=== PATIENT | female | born 1940 | race Caucasian/White ===

== ENCOUNTER 2017-06-12 00:27 | Inpatient (IN) | payer OTHER ==
[~2017-06-12] VITALS: Ht 160 cm; Wt 65.9 kg
[2017-06-12] MEDS ORDERED: MORPHINE SULFATE 2 MG/1 ML DISP.SYRIN IV ONE (00:45)
[2017-06-12] MEDS ORDERED: ONDANSETRON IV *ER 4 MG/2 ML VIAL IV ONE (00:45)
[2017-06-12] MEDS ORDERED: IV NORMAL SALINE 500 ML IV ONE (00:45)
[2017-06-12 01:06] LABS: BASOPHILS % (AUTO) 0.7 % (0.0-2.0); EOSINOPHILS # (AUTO) 0.1 K/uL (0.0-0.7); EOSINOPHILS % (AUTO) 1.6 % (0.0-7.0); HEMATOCRIT 33.6 % (31.2-41.9); HEMOGLOBIN 11.3 g/dL (10.9-14.3); LYMPHOCYTES # (AUTO) 2.5 K/uL (20.0-40.0); MEAN CORPUSCULAR HEMOGLOBIN 29.8 uug (24.7-32.8); MEAN CORPUSCULAR HGB CONC 34 g/dL (32.3-35.6); MEAN CORPUSCULAR VOLUME 88.5 fL (75.5-95.3); MONOCYTES # (AUTO) 0.5 K/uL (2.0-10.0); MONOCYTES % (AUTO) 9.8 % (0.0-11.0); NEUTROPHILS # (AUTO) 2.3 K/uL (1.8-8.9); NEUTROPHILS % (AUTO) 41.9 % (38.5-71.5); PLATELET COUNT (AUTO) 234 K/uL (179-408); WHITE BLOOD COUNT (AUTO) 5.5 K/uL (3.8-11.8)
[2017-06-12] MEDS ORDERED: MORPHINE SULFATE 4 MG/1 ML DISP.SYRIN ONE (01:10)
[2017-06-12] MEDS ORDERED: ONDANSETRON 4 MG/2 ML VIAL ONE (01:11)
[2017-06-12] MEDS ORDERED: FLUO-120 PO (01:21)
[2017-06-12] MEDS ORDERED: CLON1TAB4 PO (01:21)
--- NOTE | 2017-06-12 01:26 | NUR ---
PT BIBA S/P FALL INVOLVING LEFT HIP. PT IN BED RESTING QUIETLY WITH EYES CLOSED. PT'S DAUGHTER AT BEDSIDE. XRAY AT BEDSIDE.
[2017-06-12 01:27] LABS: CARBON DIOXIDE 25 mmol/L (21-32); CHLORIDE 106 mmol/L (98-107); CREATININE 1.1 mg/dL (0.6-1.3); GLUCOSE 93 mg/dL (74-106); POTASSIUM 3.6 mmol/L (3.5-5.1); UREA NITROGEN, BLOOD 15 mg/dL (7-18)
[2017-06-12 01:32] LABS: ALANINE AMINOTRANSFERASE 12 U/L (14-59); ALKALINE PHOSPHATASE 90 U/L (50-136); ASPARTATE AMINOTRANSFERASE 11 U/L (15-37); BILIRUBIN,TOTAL 0.3 mg/dL (0.2-1.0); TOTAL PROTEIN, SERUM 6.6 g/dL (6.4-8.2)
[2017-06-12 01:58] LABS: CREATINE KINASE, TOTAL 61 U/L (26-192)
--- NOTE | 2017-06-12 02:05 | NUR ---
PT REPORTED REDUCED HIP PAIN
--- NOTE | 2017-06-12 03:30 | NUR ---
PT IN BED RESTING QUIETLY WITH EYES CLOSED. PT'S DAUGHTER AT BEDSIDE. NO SIGNS OF DISTRESS WITNESSED AT THIS TIME.
[2017-06-12] MEDS ORDERED: HYDROCODONE/APAP 5-325MG TABLET PO PRN (03:45)
[2017-06-12] MEDS ORDERED: ONDANSETRON 4 MG/2 ML VIAL IV PRN (03:45)
[2017-06-12] MEDS ORDERED: Z GUARD REMEDY PASTE 57 GM TUBE TOP PRN (03:45)
--- NOTE | 2017-06-12 03:55 | NUR ---
REPORT GIVEN TO 2ND FLOOR TELE NURSE
--- NOTE | 2017-06-12 04:15 | NUR ---
Pt. admitted to TELEMETRY, under care of Dr. PHAM. Belongs List completed
--- NOTE | 2017-06-12 04:45 | NUR ---
Admitted a 77 y.o female patient from ER via [facility] with DX: L hip pain S/P fall. Patient AAO, speaks and understands Farsi only. Daughter at bedside to interpret. Moans and guarding L leg when turned. Wants to urinate; unable to use bedpan due to pain. Ingram catheter F#18 inserted aseptically; with clear yellow urine. Assessment completed. RHD IV site tender and with pain as per patient. Dc'd. New IV started to LFA with angio#20. Patient cooperative. Kept NPO as per MD's order. Patient and daughter made aware.
--- NOTE | 2017-06-12 05:00 | NUR ---
With large orange cold pack immobilizer to L leg. Patient able to wiggle toes of L leg; pedal pulses palpable.
[2017-06-12 05:13] VITALS: BP 106/44
--- NOTE | 2017-06-12 06:20 | NUR ---
Nursing admission data completed; information given by patient's daughter Dennys.
--- NOTE | 2017-06-12 07:30 | NUR ---
RECIEVED PT LYING IN BED, SOUND ASLEEP BUT EASILY AROUSABLE. S/P FALL, LIMITED MOVEMENT ON HER LEFT HIP AND LEG DUE TO PAIN. ABLE TO WIGGLE HER TOES. ORIENTED AND FOLLOW COMMANDS. SLEEPING ON AND OFF.
--- NOTE | 2017-06-12 09:00 | NUR ---
SEEN AND EXAMINED BY DR HERRERA WITH NER ORDERS MADE.
--- NOTE | 2017-06-12 10:00 | NUR ---
STARTED IVF D51/2 NS AT 80ML/HR VIA LEFT FA ORDERED BY DR HERRERA. PT NPO.
[2017-06-12] MEDS: IV D5 1/2 NS 1000 ML 1,000 ML IV PRN ×2 (10:11→23:28)
--- NOTE | 2017-06-12 10:30 | NUR ---
SEEN AND EXAMINED BY DR THAO ORTHOPEDIC SURGEON AND SPOKEN WITH DAUGHTER ON THE PHONE AND DISCUSSED OF THE COMING SURGERY ON WEDNESDAY.
[2017-06-12 11:36] VITALS: BP 112/56
--- NOTE | 2017-06-12 12:00 | NUR ---
PT NOT HAVING SURGERY UNTIL WEDNESDAY. MAY HAVE REGULAR DIET ORDERED. PT ATE VERY LITTLE. NEEDS MAX ASSISTANCE IN TURNING ONLY TO HER RIGHT SIDE.
[2017-06-12] MEDS: FLUOXETINE HCL 20 MG CAPSULE PO SCH (15:12)
[2017-06-12] MEDS: MORPHINE SULFATE 4 MG/1 ML DISP.SYRIN IV PRN (15:13)
--- NOTE | 2017-06-12 15:15 | NUR ---
MEDICATED WITH MORPHINE SULFATE 2MG SLOW IVP ORDERED FOR C/O SEVERE PAIN ESPECIALLY WITH TURNING.
[2017-06-12 16:09] VITALS: BP 110/56
[2017-06-12 20:00] VITALS: BP 116/46
--- NOTE | 2017-06-12 20:00 | NUR ---
RECEIVED PT. AWAKE, SPEAK & UNDERSTAND FARSI ONLY. ON O2 @ 2LNC W/ O2 SAT OF 95%.IVF D51/2NS @ 80CC/HR ON LFA, NO SIGNS OF INFILTRATION. LEFT LEG IMMOBILIZER INTACT. TURNED PT ON HER R SIDE W/ HOB ELEVATED. NOT IN ANY DISTRESS.
--- NOTE | 2017-06-12 23:27 | NUR ---
MEDICATED W/ NORCO 5/325 1 TAB FOR PAIN, THEN TURNED PT AFTER 30 MINS.
[2017-06-13] VITALS: BP 114/42
[2017-06-13 04:00] VITALS: BP 113/58
[2017-06-13 05:51] LABS: BASOPHILS % (AUTO) 0.5 % (0.0-2.0); EOSINOPHILS % (AUTO) 0.8 % (0.0-7.0); LYMPHOCYTES # (AUTO) 1.5 K/uL (20.0-40.0); MONOCYTES # (AUTO) 0.6 K/uL (2.0-10.0)
--- NOTE | 2017-06-13 06:00 | NUR ---
RESTING QUITELY. IVF INFUSING WELL.
[2017-06-13 06:16] LABS: CARBON DIOXIDE 28 mmol/L (21-32); CHLORIDE 104 mmol/L (98-107); CHOLESTEROL 244 mg/dL (<200); GLUCOSE 103 mg/dL (74-106); HDL CHOLESTEROL 47 mg/dL (40-60); MAGNESIUM 1.5 mg/dL (1.8-2.4); PHOSPHOROUS 3.7 mg/dL (2.5-4.9); TRIGLYCERIDES 129 MG/DL (30-150); UREA NITROGEN, BLOOD 12 mg/dL (7-18)
[2017-06-13 06:33] LABS: THYROID STIMULATING HORMONE 1.363 mIU/mL (0.358-3.740)
[2017-06-13 06:40] LABS: LYMPHOCYTES % (AUTO) 24.7 % (20.5-51.5); MEAN CORPUSCULAR HEMOGLOBIN 29.8 uug (24.7-32.8); MEAN CORPUSCULAR HGB CONC 34 g/dL (32.3-35.6); MEAN CORPUSCULAR VOLUME 87.6 fL (75.5-95.3); MONOCYTES % (AUTO) 9.8 % (0.0-11.0); NEUTROPHILS % (AUTO) 64.2 % (38.5-71.5); PLATELET COUNT (AUTO) 185 K/uL (179-408); RED BLOOD CELL COUNT(AUTO) 3.34 MIL/uL (3.63-4.92); WHITE BLOOD COUNT (AUTO) 6.2 K/uL (3.8-11.8)
[2017-06-13 06:41] LABS: HEMATOCRIT 29.3 % (31.2-41.9)
--- NOTE | 2017-06-13 07:30 | NUR ---
RECIEVED PT LYING IN BED, AWAKE, SPEAKS ONLY FARSI. VERY FRAGILE TO PAIN RIGHT NOW SECONDARY TO HER HIP FRACTURE. APPLIED ICEBAG ON THE LEFT HIP. HR-SR NO ECTOPY. REPOSITION TO HER RIGHT SIDE.
--- NOTE | 2017-06-13 08:30 | NUR ---
ATE VERY LITTLE BREAKFAST ABOUT 5%. MAIN IVF IS D51/2NS AT 80ML/HR. LEFT FA G20. ABLE TO WIGGLE HER TOES. J
--- NOTE | 2017-06-13 09:10 | NUR ---
DR THAO CALLED AND ASKING OF PT'S INSURANCE STATUS. WILL SCHEDULE FOR SURGERY IN THE MORNING.
[2017-06-13] MEDS: FLUOXETINE HCL 20 MG CAPSULE PO SCH (09:36)
[2017-06-13] MEDS: DOCUSATE SODIUM 100 MG CAPSULE PO SCH (09:36)
[2017-06-13 11:06] VITALS: BP 121/57
--- NOTE | 2017-06-13 12:00 | NUR ---
MAGNESIUM LEVEL IS LOW, 2GMS OF MAGNESIUM SULFATE IVPB ORDERED AND GIVEN.
[2017-06-13] MEDS: MORPHINE SULFATE 4 MG/1 ML DISP.SYRIN IV PRN ×2 (12:46→18:50)
[2017-06-13] MEDS: MAGNESIUM SULFATE/D5W 100 ML IV SCH ×2 (12:47→14:13)
[2017-06-13] MEDS: IV D5 1/2 NS 1000 ML 1,000 ML IV PRN (15:21)
[2017-06-13 15:42] VITALS: BP 99/39
--- NOTE | 2017-06-13 17:00 | NUR ---
MEDICATED FOR PAIN ON LEFT HIP MORSPINE SULFATE 2MG SLOW IVP. SURGERY PENDING TILL INSURANCE IS CLEARED.
--- NOTE | 2017-06-13 19:20 | NUR ---
RECEIVED PT LYING IN BED, AWAKE, SPEAKS ONLY FARSI. DENIES ANY PAIN AT THIS TIME TO RIGHT HIP FRACTURE. APPLIED ICE BAG ON THE LEFT HIP. SR ON TELE AT 87/MIN. IV SITE ON LFA INTACT AND PATENT. IVF INFUSING. SAFETY MEASURE INITIATED AND CALL MELENDEZ WITHIN REACH.
[2017-06-13] MEDS: ACETAMINOPHEN 325 MG TABLET PO PRN (19:47)
--- NOTE | 2017-06-13 19:49 | NUR ---
Tylenol 650mg po given for temp. 100.4 orally.
[2017-06-13 20:00] VITALS: BP 119/63
--- NOTE | 2017-06-13 21:00 | NUR ---
Pt latest temp 99.2 orally.
[2017-06-13] MEDS: CLONAZEPAM 1 MG TABLET PO SCH (21:09)
[2017-06-14] VITALS (11 sets, daily range): BP systolic 106–122; BP diastolic 39–63
[2017-06-14] MEDS: MORPHINE SULFATE 4 MG/1 ML DISP.SYRIN IV PRN ×2 (00:04→21:09)
[2017-06-14 01:29] LABS: *BILIRUBIN,URIN NEGATIVE (NEGATIVE); *BLOOD, URINE 2+ (NEGATIVE); *CLARITY,URINE CLEAR (CLEAR); *COLOR,URINE YELLOW (YELLOW); *KETONES,URINE NEGATIVE (NEGATIVE); *PROTEIN,URINE NEGATIVE (NEGATIVE); *UROBILINOGEN,URINE 0.2 E.U./dl (NORMAL); LEUKOCYTE ESTERASE ,URINE NEGATIVE (NEGATIVE); NITRITE, URINE NEGATIVE (NEGATIVE); PH,URINE 5.5 (5.0-8.0); UGLUCOSE NEGATIVE (NEGATIVE)
[2017-06-14 01:39] LABS: BACTERIA,URINE FEW /HPF (NONE SEEN); MUCUS,URINE MANY /LPF (0-FEW); RBC,URINE 20-50 /HPF (0-3); SQUAMOUS EPITHELIAL CELL,UR FEW /HPF (NONE SEEN); WBC,URINE 0-3 /HPF (0-3)
--- NOTE | 2017-06-14 06:00 | NUR ---
PT ALERT, ORIENTED AND VERBALLY RESPONSIVE. SPEAKS ONLY FARSI. DENIES ANY PAIN AT THIS TIME. MORPHINE PRN FOR PAIN EFFECTIVE. ICE BAG ALSO APPLIED TO LEFT HIP, COOL COMPRESS PROVIDED FOR TEMP. 99.1 ORALLY. SR ON TELE AT 79/MIN. IV SITE ON LFA INTACT AND PATENT. IVF INFUSING. F/C INTACT AND DRAINING VIA GRAVITY. SAFETY MEASURE MAINTAINED AND CALL MELENDEZ WITHIN REACH.
--- NOTE | 2017-06-14 06:20 | NUR ---
Telephone call from Doctor Julieta Odell and informed this nurse that pt is schedule for Left hip ORIF at 3pm today. requesting to have informed consent signed. Pt on NPO status.
--- NOTE | 2017-06-14 06:30 | NUR ---
Telephone call to pt daughter Sharif Hu and informed that consent for Left hip ORIF needs to be signed and that pt is schedule for surgery at 3pm today. Daughter stated that she will come to the hospital this morning around 8am and will sign consent form.
[2017-06-14] MEDS: IV D5 1/2 NS 1000 ML 1,000 ML IV PRN (06:43)
[2017-06-14 07:19] LABS: CARBON DIOXIDE 26 mmol/L (21-32); CHLORIDE 103 mmol/L (98-107); CREATININE 0.9 mg/dL (0.6-1.3); GLUCOSE 97 mg/dL (74-106); POTASSIUM 4.1 mmol/L (3.5-5.1); UREA NITROGEN, BLOOD 12 mg/dL (7-18)
[2017-06-14] MEDS ORDERED: VECURONIUM BROMIDE 10 MG VIAL IV ONE (07:39)
[2017-06-14] MEDS ORDERED: SEVOFLURANE 250 ML BOTTLE IH ONE (07:39)
[2017-06-14] MEDS ORDERED: LIDOCAINE HCL 1% 20 ML VIAL MC ONE (07:39)
[2017-06-14] MEDS ORDERED: PROPOFOL 200 MG/20 ML BOTTLE IV ONE (07:39)
[2017-06-14] MEDS ORDERED: IV LACTATED RINGERS SOLUTION 1,000 ML BAG IV ONE (07:39)
[2017-06-14] MEDS ORDERED: GLYCOPYRROLATE 0.2 MG/ML VIAL MC ONE (07:39)
[2017-06-14] MEDS ORDERED: CEFAZOLIN 1 G VIAL MC ONE (07:39)
[2017-06-14] MEDS ORDERED: NEOSTIGMINE METHYLSULFATE 10 MG/10 ML VIAL IV ONE (07:39)
[2017-06-14] MEDS: DOCUSATE SODIUM 100 MG CAPSULE PO SCH (09:00)
[2017-06-14] MEDS: FLUOXETINE HCL 20 MG CAPSULE PO SCH (09:00)
--- NOTE | 2017-06-14 11:40 | NUR ---
CONSENT FOR ORIF OF THE LEFT HIP SIGNED BY DAUGHTER.
--- NOTE | 2017-06-14 12:00 | NUR ---
PRE-OP CHECKLIST DONE.
--- NOTE | 2017-06-14 12:20 | NUR ---
PT C/ PAIN LEVEL 10. MEDICATED WITH MORPHINE 2MG SLOW IVP. PT OBTAINED
[2017-06-14] MEDS ORDERED: POLYMYXIN B SULFATE 500,000 UNITS, BACITRACIN 50,000 UNITS, NORMAL SALINE 20 ML MC ONE ×3 (14:00)
--- NOTE | 2017-06-14 15:30 | NUR ---
PT BROUGHT DOWN TO OR VIA GURNEY ACCOMPANIED BY OR NURSE. CONDITION IS STABLE.
[2017-06-14] MEDS ORDERED: FENTANYL CITRATE 100 MCG/2 ML AMPUL ONE (15:58)
[2017-06-14] MEDS ORDERED: MIDAZOLAM HCL 2 MG/2 ML VIAL ONE (15:58)
[2017-06-14] MEDS ORDERED: GLYCOPYRROLATE 0.2 MG/ML VIAL ONE (18:04)
--- NOTE | 2017-06-14 20:00 | NUR ---
NSG: pt received fr pacu, a/o to self, and situation that she had hip surgery. however, disoriented to time and place. thinks that we are all mafia. tele, SR. on 3L O2 via nc saturating at 93%. left hip dressing dry and intact. dvt pumps in place. HOB elevated 30 degrees, hip precaution. call light within reach. bed alarm on. daughter at the bedside.
[2017-06-14] MEDS ORDERED: HYDROCODONE/APAP 5-325MG TABLET PO PRN (20:45)
[2017-06-14] MEDS ORDERED: MORPHINE SULFATE 2 MG/1 ML DISP.SYRIN IV PRN (20:45)
[2017-06-14] MEDS ORDERED: IV LACTATED RINGERS SOLUTION 1,000 ML IV PRN (20:45)
[2017-06-14] MEDS: CLONAZEPAM 1 MG TABLET PO SCH (21:00)
[2017-06-14] MEDS: ASPIRIN EC 325 MG TABLET.DR PO SCH (21:09)
[2017-06-15 00:58] VITALS: BP 120/56
[2017-06-15] MEDS: CEFAZOLIN 1 G in PREMIXED 1 EACH IV SCH ×2 (00:59→05:09)
[2017-06-15] MEDS: MORPHINE SULFATE 4 MG/1 ML DISP.SYRIN IV PRN ×3 (00:59→21:30)
[2017-06-15 04:00] VITALS: BP 103/44
--- NOTE | 2017-06-15 04:57 | NUR ---
nsg: pt has a low grade temp of 100.7F oral. applied cooling measures. will medicate with tylenol. cont to monitor.
[2017-06-15] MEDS: ACETAMINOPHEN 325 MG TABLET PO PRN (05:09)
--- NOTE | 2017-06-15 06:05 | NUR ---
nsg: rechecked temp, now 100.0F oral. cont with cooling measures.
--- NOTE | 2017-06-15 07:37 | NUR ---
Sleeping, easily aroused, Farsi speaking. O2 at 3L/NC. IVF infusing. Right hip dressing dry and intact. RLE with good pulse, color, sensation.
[2017-06-15] MEDS: DOCUSATE SODIUM 100 MG CAPSULE PO SCH (08:46)
[2017-06-15] MEDS: ASPIRIN EC 325 MG TABLET.DR PO SCH ×2 (08:47→20:06)
[2017-06-15] MEDS: FLUOXETINE HCL 20 MG CAPSULE PO SCH (08:47)
--- NOTE | 2017-06-15 10:00 | NUR ---
Assisted out of bed by PT, ambulated at bedside
[2017-06-15 10:54] VITALS: BP 93/50
--- NOTE | 2017-06-15 14:00 | NUR ---
Resting, family at bedside
[2017-06-15 15:13] VITALS: BP 88/44
--- NOTE | 2017-06-15 16:00 | NUR ---
Noted low BP, Patient comfortable, not in distress. will monitor BP
[2017-06-15 17:00] VITALS: BP 95/41
--- NOTE | 2017-06-15 17:00 | NUR ---
IV site infiltrated. Attempted to reinserted several times but unsuccessful. Dr. Landin informed, okay to leave saline lock out. IVF discontinued
--- NOTE | 2017-06-15 18:33 | NUR ---
Afebrile. Latest BP 95/41.
--- NOTE | 2017-06-15 19:00 | NUR ---
RECEIVED PT AWAKE, ALERT, ORIENTEDX3. PT SHOWS NO SIGNS OF DISTRESS. NO IV ACCESS. DOCTOR AWARE.BLOOD CATHETER INTACT AND PATENT. CALL LIGHT WITHIN REACH. BED ALARM ON AND IN LOW POSITION,SIDE RAILS UP X2. WILL CONTINUE TO MONITOR.
[2017-06-15] MEDS: ATORVASTATIN 20 MG TABLET PO SCH (20:06)
[2017-06-15] MEDS: CLONAZEPAM 1 MG TABLET PO SCH (20:07)
[2017-06-15 20:08] VITALS: BP 101/41
--- NOTE | 2017-06-15 21:00 | NUR ---
DAUGHTER AT BEDSIDE.DAUGHTER COMPLAINING THAT NO ONE IS TAKING CARE OF HER MOTHER.CHARGE NURSE AWARE OF THE SITUATION. IV ACCESS ON RIGHT FOREARM 22G. GAVE PAIN MEDICATION. PT TOLERATED IT WELL .CALL LIGHT WITHIN REACH. BED ALARM ON AND IN LOW POSITION,SIDE RAILS UP X2. WILL CONTINUE TO MONITOR.
[2017-06-16] VITALS (7 sets, daily range): BP systolic 102–121; BP diastolic 43–80
--- NOTE | 2017-06-16 06:08 | NUR ---
PT SLEPT THROUGHOUT THE SHIFT. PT SHOWS NO SIGNS OF DISTRESS. PT IV INTACT AND PATENT. PT BLOOD CATHETER INTACT AND PATENT. PRESCRIBED MEDICATION GIVEN AND PT TOLERATED IT WELL.CALL LIGHT WITHIN REACH. BED ALARM ON AND IN LOW POSITION,SIDE RAILS UP X2. SAFETY AND COMFORT PROVIDED. WILL ENDORSE TO DAYSHIFT NURSE.
[2017-06-16 06:28] LABS: BASOPHILS % (AUTO) 0.6 % (0.0-2.0); EOSINOPHILS # (AUTO) 0.1 K/uL (0.0-0.7); EOSINOPHILS % (AUTO) 1.4 % (0.0-7.0); LYMPHOCYTES # (AUTO) 0.9 K/uL (20.0-40.0); LYMPHOCYTES % (AUTO) 15.3 % (20.5-51.5); MEAN CORPUSCULAR HEMOGLOBIN 30.6 uug (24.7-32.8); MEAN CORPUSCULAR HGB CONC 36 g/dL (32.3-35.6); MEAN CORPUSCULAR VOLUME 86.2 fL (75.5-95.3); MONOCYTES # (AUTO) 0.6 K/uL (2.0-10.0); MONOCYTES % (AUTO) 10.3 % (0.0-11.0); NEUTROPHILS # (AUTO) 4.2 K/uL (1.8-8.9); NEUTROPHILS % (AUTO) 72.4 % (38.5-71.5); PLATELET COUNT (AUTO) 179 K/uL (179-408); WHITE BLOOD COUNT (AUTO) 5.8 K/uL (3.8-11.8)
[2017-06-16 06:53] LABS: RED BLOOD CELL COUNT(AUTO) 2.43 MIL/uL (3.63-4.92)
--- NOTE | 2017-06-16 06:53 | NUR ---
NOTIFY CHARGE NURSE AND CALLED DOCTOR INDUSTRIAL/ORGANIZATIONAL PSYCHOLOGIST FOR THE CRITICAL LAB VALUE FO HGB 7.4L , HCT 21.0L AND RBC 2.43L. WILL ENDORSE TO DAYSHIFT NURSE.
[2017-06-16 06:54] LABS: HEMOGLOBIN 7.4 g/dL (10.9-14.3)
--- NOTE | 2017-06-16 07:29 | NUR ---
STILL WAITING FOR THE CALL BACK OF THE DR CASE MGR REGARDING CRITICAL VALUE. MESSAGE DR. ZAVALETA REGARDING THE CRITICAL VALUE. CHARGE NURSE AWARE AND ENDORSE TO DAYSHIFT NURSE REGARDING CRITICAL VALUE.
--- NOTE | 2017-06-16 07:48 | NUR ---
Sleeping, comfortable. Orders received from Dr. Landin for Hgb 7.4/Hct 21, for PRBC Transfusion
[2017-06-16] MEDS: FAMOTIDINE 20 MG TABLET PO SCH (08:38)
[2017-06-16] MEDS: FLUOXETINE HCL 20 MG CAPSULE PO SCH (08:38)
[2017-06-16] MEDS: MULTIVITAMINS,THERAPEUTIC TABLET PO SCH (08:38)
[2017-06-16] MEDS: ASPIRIN EC 325 MG TABLET.DR PO SCH ×2 (08:38→20:36)
[2017-06-16] MEDS: DOCUSATE SODIUM 100 MG CAPSULE PO SCH (08:38)
[2017-06-16] MEDS: TRAMADOL HCL 50 MG TABLET PO PRN ×3 (08:39→23:48)
[2017-06-16 08:52] LABS: ALANINE AMINOTRANSFERASE 9 U/L (14-59); ALKALINE PHOSPHATASE 89 U/L (50-136); ASPARTATE AMINOTRANSFERASE 21 U/L (15-37); BILIRUBIN,TOTAL 0.5 mg/dL (0.2-1.0); CARBON DIOXIDE 28 mmol/L (21-32); CHLORIDE 102 mmol/L (98-107); CREATININE 0.8 mg/dL (0.6-1.3); GLUCOSE 96 mg/dL (74-106); MAGNESIUM 1.6 mg/dL (1.8-2.4); PHOSPHOROUS 2.4 mg/dL (2.5-4.9); POTASSIUM 3.7 mmol/L (3.5-5.1); TOTAL PROTEIN, SERUM 5.3 g/dL (6.4-8.2); UREA NITROGEN, BLOOD 15 mg/dL (7-18)
[2017-06-16] MEDS ORDERED: NEUTRA PHOS PACKET PO ONE (10:15)
[2017-06-16] MEDS ORDERED: MAGNESIUM OXIDE 400 MG TABLET PO ONE (10:15)
--- NOTE | 2017-06-16 10:54 | NUR ---
1 unit of PRBC started
--- NOTE | 2017-06-16 13:28 | NUR ---
Blood transfusion finished, no reaction noted.
--- NOTE | 2017-06-16 16:00 | NUR ---
Ingram catheter removed per protocol
--- NOTE | 2017-06-16 17:23 | NUR ---
With BM, cleansed with incontinence care. Repositioned comfortably. Dinner served.
--- NOTE | 2017-06-16 19:10 | NUR ---
RECEIVED PT AWAKE, ALERT,ORIENTEDX4. PT SHOWS NO SIGNS OF DISTRESS. PT IV INTACT AND PATENT. CALL LIGHT WITHIN REACH. BED ALARM ON AND IN LOW POSITION, SIDE RAILS UPX2. WILL CONTINUE TO MONITOR.
[2017-06-16] MEDS: ATORVASTATIN 20 MG TABLET PO SCH (20:36)
[2017-06-16] MEDS: CLONAZEPAM 1 MG TABLET PO SCH (20:37)
[2017-06-17 04:00] VITALS: BP 117/54
--- NOTE | 2017-06-17 06:04 | NUR ---
PT SLEPT THROUGHOUT THE SHIFT. PT SHOWS NO SIGNS OF DISTRESS. PT IV INTACT AND PATENT. PT HAD 2 BOWEL MOVEMENT. PRESCRIBED MEDICATION GIVEN AND PT TOLERATED IT WELL. SAFETY AND COMFORT PROVIDED.ALL NEEDS MET. WILL ENDORSE TO DAYSHIFT NURSE.
[2017-06-17 06:09] LABS: BASOPHILS % (AUTO) 0.7 % (0.0-2.0); EOSINOPHILS # (AUTO) 0.2 K/uL (0.0-0.7); EOSINOPHILS % (AUTO) 2.9 % (0.0-7.0); HEMATOCRIT 24.8 % (31.2-41.9); HEMOGLOBIN 8.7 g/dL (10.9-14.3); LYMPHOCYTES # (AUTO) 1.6 K/uL (20.0-40.0); LYMPHOCYTES % (AUTO) 25.7 % (20.5-51.5); MEAN CORPUSCULAR HGB CONC 35 g/dL (32.3-35.6); MEAN CORPUSCULAR VOLUME 85.5 fL (75.5-95.3); MONOCYTES # (AUTO) 0.6 K/uL (2.0-10.0); MONOCYTES % (AUTO) 10.1 % (0.0-11.0); NEUTROPHILS # (AUTO) 3.7 K/uL (1.8-8.9); NEUTROPHILS % (AUTO) 60.6 % (38.5-71.5); PLATELET COUNT (AUTO) 208 K/uL (179-408); WHITE BLOOD COUNT (AUTO) 6.1 K/uL (3.8-11.8)
[2017-06-17 06:20] LABS: CARBON DIOXIDE 28 mmol/L (21-32); CHLORIDE 102 mmol/L (98-107); CREATININE 0.8 mg/dL (0.6-1.3); GLUCOSE 84 mg/dL (74-106); MAGNESIUM 1.7 mg/dL (1.8-2.4); PHOSPHOROUS 2.6 mg/dL (2.5-4.9); POTASSIUM 3.6 mmol/L (3.5-5.1); UREA NITROGEN, BLOOD 15 mg/dL (7-18)
[2017-06-17] MEDS: MULTIVITAMINS,THERAPEUTIC TABLET PO SCH (08:18)
[2017-06-17] MEDS: FLUOXETINE HCL 20 MG CAPSULE PO SCH (08:18)
[2017-06-17] MEDS: FAMOTIDINE 20 MG TABLET PO SCH (08:18)
[2017-06-17] MEDS: ASPIRIN EC 325 MG TABLET.DR PO SCH ×2 (08:18→21:17)
[2017-06-17] MEDS: DOCUSATE SODIUM 100 MG CAPSULE PO SCH (08:18)
[2017-06-17] MEDS: TRAMADOL HCL 50 MG TABLET PO PRN ×3 (08:57→22:56)
[2017-06-17] MEDS ORDERED: MAGNESIUM OXIDE 400 MG TABLET PO ONE (09:30)
[2017-06-17 11:08] VITALS: BP 99/42
[2017-06-17 15:09] VITALS: BP 96/43
--- NOTE | 2017-06-17 16:44 | NUR ---
Visited patient and obtained food preferences, pt is eating 50-75% of meals. Will add one ensure dietary supplement. Will monitor po intake,weight, new labs Addendum: 06/17/17 at [address] Amended: Links added.
[2017-06-17 19:00] VITALS: BP 122/41
--- NOTE | 2017-06-17 19:00 | NUR ---
RECEIVED PT ASLEEP ON BED COMFORTABLY. PT SHOWS NO SIGNS OF DISTRESS. PT IV INTACT AND PATENT. CALL LIGHT WITHIN REACH. BED ALARM ON AND IN LOW POSITION, SIDE RAILS UPX2. WILL CONTINUE TO MONITOR.
[2017-06-17] MEDS: ATORVASTATIN 20 MG TABLET PO SCH (21:17)
[2017-06-17] MEDS: CLONAZEPAM 1 MG TABLET PO SCH (21:17)
[2017-06-17 22:17] LABS: *BILIRUBIN,URIN NEGATIVE (NEGATIVE); *BLOOD, URINE Trace-lysed (NEGATIVE); *CLARITY,URINE SLIGHTLY CLOUDY (CLEAR); *COLOR,URINE YELLOW (YELLOW); *KETONES,URINE NEGATIVE (NEGATIVE); *PROTEIN,URINE NEGATIVE (NEGATIVE); *UROBILINOGEN,URINE 0.2 E.U./dl (NORMAL); LEUKOCYTE ESTERASE ,URINE 1+ (NEGATIVE); NITRITE, URINE NEGATIVE (NEGATIVE); UGLUCOSE NEGATIVE (NEGATIVE)
[2017-06-17 22:25] LABS: BACTERIA,URINE NONE SEEN /HPF (NONE SEEN); SQUAMOUS EPITHELIAL CELL,UR MODERATE /HPF (NONE SEEN); WBC,URINE 80-100 /HPF (0-3); YEAST,URINE MANY /HPF (NONE SEEN)
[2017-06-17 22:26] LABS: TRANSITIONAL EPI CELLS,URINE FEW /LPF (NONE SEEN)
[2017-06-18] MEDS: FLUCONAZOLE 200 MG/NS 100ML IV 100 MG in PREMIXED 1 EACH IV SCH (01:00)
[2017-06-18] MEDS ORDERED: FLUCONAZOLE 200 MG/100 ML PIGGYBACK ONE (02:08)
[2017-06-18 04:00] VITALS: BP 118/58
--- NOTE | 2017-06-18 06:12 | NUR ---
PT SLEPT THROUGHOUT THE SHIFT. PT SHOWS NO SIGNS OF DISTRESS. PT IV INTACT AND PATENT.PT STABLE.PRESCRIBED MEDICATION GIVEN AND PT TOLERATED IT WELL,SAFETY AND COMFORT PROVIDED. ALL NEEDS ARE MET. WILL ENDORSE TO DAYSHIFT NURSE.
[2017-06-18] MEDS: MULTIVITAMINS,THERAPEUTIC TABLET PO SCH (08:13)
[2017-06-18] MEDS: DOCUSATE SODIUM 100 MG CAPSULE PO SCH (08:13)
[2017-06-18] MEDS: FAMOTIDINE 20 MG TABLET PO SCH (08:13)
[2017-06-18] MEDS: TRAMADOL HCL 50 MG TABLET PO PRN ×3 (08:13→22:01)
[2017-06-18] MEDS: ASPIRIN EC 325 MG TABLET.DR PO SCH ×2 (08:13→21:11)
[2017-06-18] MEDS: FLUOXETINE HCL 20 MG CAPSULE PO SCH (08:13)
[2017-06-18 11:32] VITALS: BP 110/54
[2017-06-18 15:42] VITALS: BP 111/54
--- NOTE | 2017-06-18 16:00 | NUR ---
PT WAS JUMPING OUT OF BED DR ZAVALETA SEEN THE PT ,CALLED THE NURSES UPON APPROACH PT WAS TALKING IN FARSI LANGUAGE ITS HARD TO UNDERSTAND HER LEGS WERE OUT OF BEDS ,PUT THE PT BACK TO THE BED ,PT GET ANGRY ,WITH CHARGE NURSE HELP AND OTHER RN HELP REPOSITION THE PT BACK TO BED .
[2017-06-18] MEDS: MAGNESIUM HYDROXIDE 30 ML LIQUID UDC PO PRN (16:30)
--- NOTE | 2017-06-18 16:30 | NUR ---
PUT THE BED ALARM ON PAIN MEDS GIVEN MD MADE AWARE
[2017-06-18 19:00] VITALS: BP 132/58
--- NOTE | 2017-06-18 19:00 | NUR ---
RECEIVED PT AWAKE, ALERT, ORIENTEDX3.DAUGHTER AT BEDSIDE. ENDORSED BY DAYSHIFT NURSE PT TRYING TO GET OUT OF BED AT 1600H. DOCTOR AWARE. DAUGHTER TOLD ME THAT HER MOTHER JUST WANT TO SIT UP BECAUSE HER MOTHER'S BACK IS ACHING. PT IV INTACT AND PATENT. PT SHOWS NO SIGNS OF DISTRESS. CALL LIGHT WITHIN REACH, BED ALARM ON AND IN LOW POSITION, SIDE RAILS X2 UP. WILL CONTINUE TO MONITOR.
[2017-06-18] MEDS: CLONAZEPAM 1 MG TABLET PO SCH (21:11)
[2017-06-18] MEDS: ATORVASTATIN 20 MG TABLET PO SCH (21:11)
[2017-06-19] MEDS: FLUCONAZOLE 200 MG/NS 100ML IV 100 MG in PREMIXED 1 EACH IV SCH (00:24)
[2017-06-19 04:00] VITALS: BP 120/58
--- NOTE | 2017-06-19 06:46 | NUR ---
PT SLEPT THROUGHOUT THE SHIFT. PT SHOWS NO SIGNS OF DISTRESS. PT STABLE AND VITAL SIGNS WNL. IV INTACT AND PATENT. PRESCRIBED MEDICATION TAKEN AND PT TOLERATED IT WELL. REPOSITIONED COMFORTABLY. SAFETY AND COMFORT PROVIDED.WILL ENDORSE TO DAYSHIFT NURSE.
[2017-06-19 06:52] LABS: BASOPHILS % (AUTO) 0.8 % (0.0-2.0); EOSINOPHILS # (AUTO) 0.2 K/uL (0.0-0.7); EOSINOPHILS % (AUTO) 2.6 % (0.0-7.0); HEMATOCRIT 25.6 % (31.2-41.9); LYMPHOCYTES # (AUTO) 1.8 K/uL (20.0-40.0); LYMPHOCYTES % (AUTO) 27.9 % (20.5-51.5); MEAN CORPUSCULAR HGB CONC 35 g/dL (32.3-35.6); MEAN CORPUSCULAR VOLUME 85.3 fL (75.5-95.3); MONOCYTES # (AUTO) 0.8 K/uL (2.0-10.0); MONOCYTES % (AUTO) 12.2 % (0.0-11.0); NEUTROPHILS # (AUTO) 3.6 K/uL (1.8-8.9); NEUTROPHILS % (AUTO) 56.5 % (38.5-71.5); RED BLOOD CELL COUNT(AUTO) 3.01 MIL/uL (3.63-4.92); WHITE BLOOD COUNT (AUTO) 6.4 K/uL (3.8-11.8)
[2017-06-19 06:53] LABS: ALANINE AMINOTRANSFERASE 17 U/L (14-59); ALKALINE PHOSPHATASE 108 U/L (50-136); ASPARTATE AMINOTRANSFERASE 28 U/L (15-37); BILIRUBIN,TOTAL 0.8 mg/dL (0.2-1.0); CARBON DIOXIDE 29 mmol/L (21-32); CHLORIDE 102 mmol/L (98-107); CREATININE 0.9 mg/dL (0.6-1.3); GLUCOSE 81 mg/dL (74-106); PHOSPHOROUS 3.6 mg/dL (2.5-4.9); POTASSIUM 4.2 mmol/L (3.5-5.1); UREA NITROGEN, BLOOD 18 mg/dL (7-18)
[2017-06-19 06:58] LABS: PLATELET COUNT (AUTO) 293 K/uL (179-408)
[2017-06-19 07:52] LABS: BAND % (MANUAL) 5 % (0-10); BASOPHILS % (MANUAL) 1 % (0-2); EOSINOPHILS % (MANUAL) 3 % (0-8); LYMPHOCYTES % (MANUAL) 27 % (20-40); METAMYELOCYTES % 1 % (0-1); MONOCYTES % (MANUAL) 10 % (2-10); NEUTROPHILS % (MANUAL) 53 % (42-75)
[2017-06-19] MEDS: FLUOXETINE HCL 20 MG CAPSULE PO SCH (08:29)
[2017-06-19] MEDS: ASPIRIN EC 325 MG TABLET.DR PO SCH ×2 (08:29→21:20)
[2017-06-19] MEDS: DOCUSATE SODIUM 100 MG CAPSULE PO SCH (08:30)
[2017-06-19] MEDS: FAMOTIDINE 20 MG TABLET PO SCH (08:30)
[2017-06-19] MEDS: MULTIVITAMINS,THERAPEUTIC TABLET PO SCH (08:30)
[2017-06-19] MEDS: TRAMADOL HCL 50 MG TABLET PO PRN ×2 (08:30→21:55)
[2017-06-19 11:05] VITALS: BP 113/49
[2017-06-19 15:16] VITALS: BP 110/47
--- NOTE | 2017-06-19 18:42 | NUR ---
PT OBSERVED RESTING IN BED, CALM, COOPERATIVE, MEDICATION COMPLIANT, NO SIGNS OF DISTRESS, VERBALIZES 0/10 PAIN AT THIS TIME. WORKED WITH PT IN THE AM, AND TOLERATED MOVEMENT. PT HAD SEVERAL VISITORS. CONTINUE TO MONITOR PT.
[2017-06-19 19:00] VITALS: BP 133/65
--- NOTE | 2017-06-19 19:05 | NUR ---
RECEIVED PT AWAKE, ALERT, ORIENTEDX3. . PT SHOWS NO SIGNS OF DISTRESS. PT IV INTACT AND PATENT. CALL LIGHT WITHIN REACH. BED ALARM ON AND IN LOW POSITION, SIDE RAILS UPX2. WILL CONTINUE TO MONITOR.
[2017-06-19] MEDS: ATORVASTATIN 20 MG TABLET PO SCH (21:20)
[2017-06-19] MEDS: CLONAZEPAM 1 MG TABLET PO SCH (21:20)
[2017-06-19] MEDS: MAGNESIUM HYDROXIDE 30 ML LIQUID UDC PO PRN (21:25)
[2017-06-20] MEDS: FLUCONAZOLE 200 MG/NS 100ML IV 100 MG in PREMIXED 1 EACH IV SCH (00:36)
[2017-06-20 04:00] VITALS: BP 111/56
[2017-06-20] MEDS: FAMOTIDINE 20 MG TABLET PO SCH (08:02)
[2017-06-20] MEDS: DOCUSATE SODIUM 100 MG CAPSULE PO SCH (08:02)
[2017-06-20] MEDS: ASPIRIN EC 325 MG TABLET.DR PO SCH ×2 (08:03→21:56)
[2017-06-20] MEDS: MULTIVITAMINS,THERAPEUTIC TABLET PO SCH (08:03)
[2017-06-20] MEDS: FLUOXETINE HCL 20 MG CAPSULE PO SCH (08:03)
[2017-06-20] MEDS: TRAMADOL HCL 50 MG TABLET PO PRN (08:03)
[2017-06-20 11:32] VITALS: BP 100/45
[2017-06-20 15:32] VITALS: BP 102/50
--- NOTE | 2017-06-20 19:10 | NUR ---
PT AWAKE , ALERT , ORIENTEDX3. PT SHOWS NO SIGNS OF DISTRESS. PT IV INTACT AND PATENT. CALL LIGHT WITHIN REACH. BED ALARM ON AND IN LOW POSITION, SIDE [id number]. WILL CONTINUE TO MONITOR,
--- NOTE | 2017-06-20 19:44 | NUR ---
DRESSING WAS CHANGED, I SPOKE TO DR. ZAVALETA, HE GAVE THE OK TO CHANGE DRESSING. SITE IS CLEAN AND DRY. AB PAD WAS APPLIED.
[2017-06-20 20:00] VITALS: BP 130/62
[2017-06-20] MEDS: ATORVASTATIN 20 MG TABLET PO SCH (21:56)
[2017-06-20] MEDS: CLONAZEPAM 1 MG TABLET PO SCH (21:56)
[2017-06-21] MEDS: FLUCONAZOLE 200 MG/NS 100ML IV 100 MG in PREMIXED 1 EACH IV SCH (01:06)
[2017-06-21] MEDS: TRAMADOL HCL 50 MG TABLET PO PRN ×2 (01:07→11:09)
[2017-06-21 06:18] VITALS: BP 118/55
--- NOTE | 2017-06-21 06:53 | NUR ---
PT AWAKE , ALERT , ORIENTEDX3. PT SHOWS NO SIGNS OF DISTRESS. PT IV INTACT AND PATENT. CALL LIGHT WITHIN REACH. BED ALARM ON AND IN LOW POSITION, SIDE [id number]. WILL CONTINUE TO MONITOR.
[2017-06-21] MEDS: MULTIVITAMINS,THERAPEUTIC TABLET PO SCH (08:42)
[2017-06-21] MEDS: DOCUSATE SODIUM 100 MG CAPSULE PO SCH (08:42)
[2017-06-21] MEDS: ASPIRIN EC 325 MG TABLET.DR PO SCH ×2 (08:42→20:50)
[2017-06-21] MEDS: FAMOTIDINE 20 MG TABLET PO SCH (08:42)
[2017-06-21] MEDS: FLUOXETINE HCL 20 MG CAPSULE PO SCH (08:43)
[2017-06-21 12:08] VITALS: BP 119/53
[2017-06-21 15:48] VITALS: BP 117/48
--- NOTE | 2017-06-21 19:15 | NUR ---
Received patient in bed. Alert and verbally responsive. Farsi speaking, but able to make needs known. Denies any pain and discomfort at this time. No acute distress noted. No SOB. Left hip incision site kept clean and dry. No s/s of infection noted. All needs attended to promptly. Call light within reach. Will continue to monitor.
[2017-06-21 20:00] VITALS: BP 113/58
[2017-06-21] MEDS: ATORVASTATIN 20 MG TABLET PO SCH (20:50)
[2017-06-21] MEDS: CLONAZEPAM 1 MG TABLET PO SCH (20:57)
[2017-06-22] MEDS: FLUCONAZOLE 200 MG/NS 100ML IV 100 MG in PREMIXED 1 EACH IV SCH (01:39)
[2017-06-22 04:29] VITALS: BP 125/43
--- NOTE | 2017-06-22 06:36 | NUR ---
Patient slept comfortably throughout the night. No c/o pain and discomfort. No acute distress. No SOB. IV site on left AC patent and intact. No s/s of infiltration. No redness. All needs attended to promptly. Call light within reach. Will continue to monitor.
[2017-06-22 06:52] LABS: BASOPHILS % (AUTO) 0.6 % (0.0-2.0); EOSINOPHILS # (AUTO) 0.1 K/uL (0.0-0.7); EOSINOPHILS % (AUTO) 1.6 % (0.0-7.0); HEMATOCRIT 27.4 % (31.2-41.9); HEMOGLOBIN 9.6 g/dL (10.9-14.3); LYMPHOCYTES # (AUTO) 2.1 K/uL (20.0-40.0); LYMPHOCYTES % (AUTO) 27.7 % (20.5-51.5); MEAN CORPUSCULAR HEMOGLOBIN 29.9 uug (24.7-32.8); MEAN CORPUSCULAR HGB CONC 35 g/dL (32.3-35.6); MEAN CORPUSCULAR VOLUME 85.5 fL (75.5-95.3); MONOCYTES # (AUTO) 0.6 K/uL (2.0-10.0); MONOCYTES % (AUTO) 8.1 % (0.0-11.0); NEUTROPHILS # (AUTO) 4.7 K/uL (1.8-8.9); PLATELET COUNT (AUTO) 408 K/uL (179-408); WHITE BLOOD COUNT (AUTO) 7.6 K/uL (3.8-11.8)
[2017-06-22 07:04] LABS: CARBON DIOXIDE 26 mmol/L (21-32); CHLORIDE 103 mmol/L (98-107); GLUCOSE 92 mg/dL (74-106); PHOSPHOROUS 4.2 mg/dL (2.5-4.9); POTASSIUM 4.1 mmol/L (3.5-5.1); UREA NITROGEN, BLOOD 16 mg/dL (7-18)
[2017-06-22] MEDS: DOCUSATE SODIUM 100 MG CAPSULE PO SCH (08:13)
[2017-06-22] MEDS: ASPIRIN EC 325 MG TABLET.DR PO SCH ×2 (08:13→20:17)
[2017-06-22] MEDS: MULTIVITAMINS,THERAPEUTIC TABLET PO SCH (08:13)
[2017-06-22] MEDS: FAMOTIDINE 20 MG TABLET PO SCH (08:13)
[2017-06-22] MEDS: FLUOXETINE HCL 20 MG CAPSULE PO SCH (08:16)
[2017-06-22] MEDS: TRAMADOL HCL 50 MG TABLET PO PRN ×2 (10:05→18:42)
[2017-06-22 11:15] VITALS: BP 129/66
[2017-06-22 15:54] VITALS: BP 99/50
--- NOTE | 2017-06-22 18:30 | NUR ---
Patient alert, in no distress. Pain management as ordered. Dressing/aravind on left hip/thigh clean/dry/intact, no bleeding/discharge. VS stable, afebrile. Patient kept clean/dry, repositioned, alignment of left hip/thing at all times.
[2017-06-22 19:00] VITALS: BP 113/47
--- NOTE | 2017-06-22 19:45 | NUR ---
RECEIVED PATIENT AWAKE IN BED. A/OX3. FARSI SPEAKING ONLY. APPEARS, SAD/DEPRESSED. CALLED DAUGHTER, EVANGELISTA TO TRANSLATE. PATIENT IS C/O ANXIETY. DAUGHTER IS ALSO VERY CONCERNED ABOUT HER MOTHERS MENTAL STATUS, STATING SHE IS VERY DEPRESSED AND WANTS MD TO CALL HER AND POSSIBLE ADJUST MEDS. WILL ENDORSE. DENIES PAIN. DRESSING NOTED TO LEFT HIP, C/D/I. NO RESP. DISTRESS NOTED. H/L INTACT AND PATENT. CALL LIGHT IN REACH. ALL NEEDS ATTENDED. WILL CONTINUE TO MONITOR AND ASSESS.
[2017-06-22] MEDS: ATORVASTATIN 20 MG TABLET PO SCH (20:17)
[2017-06-22] MEDS: CLONAZEPAM 1 MG TABLET PO SCH (20:17)
[2017-06-22] MEDS: ACETAMINOPHEN 325 MG TABLET PO PRN (22:20)
[2017-06-23] MEDS: FLUCONAZOLE 200 MG/NS 100ML IV 100 MG in PREMIXED 1 EACH IV SCH (00:48)
[2017-06-23 05:30] VITALS: BP 116/53
--- NOTE | 2017-06-23 06:01 | NUR ---
PATIENT AWAKE IN BED. SLEPT WELL. DENIES PAIN. DRESSINGS NOTED TO LEFT HIP/THIGH, C/D/I. NO RESP. DISTRESS NOTED. H/L NOTED TO LEFT AC, INFILTRATED. REMOVED. WILL RESTART. BED ALARM ON. CALL LIGHT IN REACH. ALL NEEDS ATTENDED. WILL CONTINUE TO MONITOR.
--- NOTE | 2017-06-23 06:50 | NUR ---
UNABLE TO START IV AT THIS TIME. WILL ENDORSE TO AM SHIFT.
[2017-06-23] MEDS: FAMOTIDINE 20 MG TABLET PO SCH (08:35)
[2017-06-23] MEDS: MULTIVITAMINS,THERAPEUTIC TABLET PO SCH (08:35)
[2017-06-23] MEDS: DOCUSATE SODIUM 100 MG CAPSULE PO SCH (08:35)
[2017-06-23] MEDS: FLUOXETINE HCL 20 MG CAPSULE PO SCH (08:35)
[2017-06-23] MEDS: ASPIRIN EC 325 MG TABLET.DR PO SCH ×2 (08:42→20:52)
[2017-06-23 11:03] VITALS: BP 115/48
[2017-06-23 15:05] VITALS: BP 112/60
[2017-06-23] MEDS: TRAMADOL HCL 50 MG TABLET PO PRN (16:34)
--- NOTE | 2017-06-23 17:15 | NUR ---
Ambulance arrived and was cancelled. Discharged was [facility] Daughter notified.
--- NOTE | 2017-06-23 18:00 | NUR ---
notified regarding patient's discharge status. Order for Diflucan IV to be changed to PO taken and carried out, read back done. Addendum: 06/23/17 at 1902 by PHILIP PEDERSON RN Add: Patient has no IV access, aware.
[2017-06-23 20:00] VITALS: BP 111/43
[2017-06-23] MEDS: CLONAZEPAM 1 MG TABLET PO SCH (20:52)
[2017-06-23] MEDS: ACETAMINOPHEN 325 MG TABLET PO PRN (20:52)
[2017-06-23] MEDS: ATORVASTATIN 20 MG TABLET PO SCH (20:52)
[2017-06-24 05:21] VITALS: BP 113/53
--- NOTE | 2017-06-24 07:32 | NUR ---
patient resting comfortably in bed, awake. farsi speaking only. no s/s of distress. stable condition. [facility] bed in locked/low position, side rails up x2, bed alarm on, call light within reach. fall precaution implemented. will monitor throughout shift.
[2017-06-24] MEDS: ASPIRIN EC 325 MG TABLET.DR PO SCH ×2 (08:16→20:30)
[2017-06-24] MEDS: MULTIVITAMINS,THERAPEUTIC TABLET PO SCH (08:16)
[2017-06-24] MEDS: FLUOXETINE HCL 20 MG CAPSULE PO SCH (08:16)
[2017-06-24] MEDS: DOCUSATE SODIUM 100 MG CAPSULE PO SCH (08:16)
[2017-06-24] MEDS: FLUCONAZOLE 100 MG TABLET PO SCH (08:17)
[2017-06-24] MEDS: FAMOTIDINE 20 MG TABLET PO SCH (08:17)
[2017-06-24] MEDS: TRAMADOL HCL 50 MG TABLET PO PRN (08:17)
--- NOTE | 2017-06-24 10:00 | NUR ---
seen by physical therapy. able to tolerate. pain medication administered for pain management before physical therapy.
[2017-06-24 11:14] VITALS: BP 132/67
[2017-06-24 15:06] VITALS: BP 116/50
--- NOTE | 2017-06-24 19:45 | NUR ---
RECEIVED PATIENT AWAKE IN BED WITH DAUGHTER AT BEDSIDE. PATIENT IS A/O X3. FARSI SPEAKING, ABLE TO MAKE SIMPLE NEEDS KNOWN. DAUGHTER AT BEDSIDE TO TRANSLATE. PATIENT DENIES PAIN OR DISCOMFORT. NO RESP. DISTRESS NOTED. VS WNL. DRESSING NOTED TO LEFT HIP, C/D/I. CALL LIGHT IN REACH. BED ALARM ON. ALL NEEDS ATTENDED. WILL CONTINUE TO MONITOR AND ASSESS.
[2017-06-24 20:00] VITALS: BP 95/50
[2017-06-24] MEDS: CLONAZEPAM 1 MG TABLET PO SCH (20:30)
[2017-06-24] MEDS: ATORVASTATIN 20 MG TABLET PO SCH (20:30)
[2017-06-25 05:12] VITALS: BP 112/60
--- NOTE | 2017-06-25 06:03 | NUR ---
PATIENT ASLEEP IN BED. SLEPT WELL. VS WNL. NO S/S OF PAIN OR DISCOMFORT. NO RESP. DISTRESS NOTED. BED ALARM ON. CALL LIGHT IN REACH. ALL NEEDS ATTENDED. WILL CONTINUE TO MONITOR.
[2017-06-25] MEDS: DOCUSATE SODIUM 100 MG CAPSULE PO SCH (08:59)
[2017-06-25] MEDS: FLUOXETINE HCL 20 MG CAPSULE PO SCH (08:59)
[2017-06-25] MEDS: MULTIVITAMINS,THERAPEUTIC TABLET PO SCH (08:59)
[2017-06-25] MEDS: FLUCONAZOLE 100 MG TABLET PO SCH (09:00)
[2017-06-25] MEDS: ASPIRIN EC 325 MG TABLET.DR PO SCH ×2 (09:00→20:40)
[2017-06-25] MEDS: FAMOTIDINE 20 MG TABLET PO SCH (09:00)
--- NOTE | 2017-06-25 09:08 | NUR ---
SBAR report received, board updated. Pt assessed, denies pain and need for pain maedication at this time. Incision to left hip shows no s/s of infection at this time , dressing reinforced. Pt compliant with routine morning medication administration. Bed in locked and lowest position, with side rails up x2. All safety and comfort measures implemented. Pt awake, alert, oriented, and able to make needs known. Call light and personal belongings within reach. Will continue to monitor.
--- NOTE | 2017-06-25 09:20 | NUR ---
patient resting comfortably in bed, no s/s of distress, stable condition. bed alarm on, call light within reach. bed in locked/low position, side rails up x2. will continue to monitor throughout shift.
--- NOTE | 2017-06-25 10:00 | NUR ---
seen by physical therapy, tolerated well. pain medication provided after pt.
[2017-06-25] MEDS: TRAMADOL HCL 50 MG TABLET PO PRN (10:22)
[2017-06-25 11:02] VITALS: BP 126/56
[2017-06-25 15:13] VITALS: BP 124/51
--- NOTE | 2017-06-25 18:23 | NUR ---
no significant changes related to patient medically. stable condition, no s/s of distress. bed alarm on, call light within reach. bed in locked/low position, side rails up x2.
[2017-06-25] MEDS: ACETAMINOPHEN 325 MG TABLET PO PRN (19:49)
--- NOTE | 2017-06-25 19:50 | NUR ---
RECEIVED PATIENT AWAKE IN BED WITH DAUGHTER AT BEDSIDE. PATIENT IS A/O X3. FARSI SPEAKING, ABLE TO MAKE SIMPLE NEEDS KNOWN. DAUGHTER AT BEDSIDE TO TRANSLATE. PATIENT C/O MILD PAIN IN LEFT HIP. GIVEN TYLENOL 650MG PO PRN FOR PAIN. NO RESP. DISTRESS NOTED. VS WNL. DRESSING NOTED TO LEFT HIP, C/D/I. CALL LIGHT IN REACH. BED ALARM ON. ALL NEEDS ATTENDED. WILL CONTINUE TO MONITOR AND ASSESS.
[2017-06-25 20:00] VITALS: BP 114/59
[2017-06-25] MEDS: ATORVASTATIN 20 MG TABLET PO SCH (20:40)
[2017-06-25] MEDS: CLONAZEPAM 1 MG TABLET PO SCH (20:40)
--- NOTE | 2017-06-26 00:30 | NUR ---
PATIENT AWAKE IN BED. C/O PAIN IN LEFT HIP. PATIENT GIVEN TRAMADOL 50MG PO PRN FOR PAIN. DRESSING CHANGED TO LEFT HIP AND LEFT THIGH. BED ALARM ON. CALL LIGHT IN REACH. ALL NEEDS ATTENDED. WILL CONTINUE TO MONITOR AND ASSESS.
[2017-06-26] MEDS: TRAMADOL HCL 50 MG TABLET PO PRN ×3 (00:37→20:15)
--- NOTE | 2017-06-26 01:46 | NUR ---
PATIENT ASLEEP IN BED. SLEEPING WELL. NO RESP. DISTRESS NOTED. CALL LIGHT IN REACH. ALL NEEDS ATTENDED.
[2017-06-26 06:33] VITALS: BP 120/60
--- NOTE | 2017-06-26 07:27 | NUR ---
PATIENT ASLEEP IN BED. SLEPT WELL THROUGHOUT THE NIGHT. DRESSING NOTED TO LEFT HIP C/D/I. CALL LIGHT IN REACH. ALL NEEDS ATTENDED. WILL CONTINUE TO MONITOR.
[2017-06-26] MEDS: FLUCONAZOLE 100 MG TABLET PO SCH (08:01)
[2017-06-26] MEDS: ASPIRIN EC 325 MG TABLET.DR PO SCH ×2 (08:01→20:15)
[2017-06-26] MEDS: MULTIVITAMINS,THERAPEUTIC TABLET PO SCH (08:01)
[2017-06-26] MEDS: DOCUSATE SODIUM 100 MG CAPSULE PO SCH (08:01)
[2017-06-26] MEDS: FLUOXETINE HCL 20 MG CAPSULE PO SCH (08:02)
[2017-06-26] MEDS: FAMOTIDINE 20 MG TABLET PO SCH (08:02)
--- NOTE | 2017-06-26 10:45 | NUR ---
Patient was provided a bed bath and hair wash, assisted SEAT COVERS TRIMMER. Patient tolerated patient care and is appreciative. Will continue to monitor.
--- NOTE | 2017-06-26 11:00 | NUR ---
REWARDS CONSULTANT informed regarding status of removal of aravind on the left hip.
[2017-06-26 11:46] VITALS: BP 109/56
[2017-06-26 15:49] VITALS: BP 105/55
--- NOTE | 2017-06-26 17:50 | NUR ---
Patient is alert, in no distress. Pain management as ordered. Incision/aravind on the left hip intact, no redness/bleeding/swelling, dressing clean/dry/intact. Assisted patient with toileting needs, patient able to ambulate from bed to toilet via walker. Safety measures in place. Will continue to monitor.
--- NOTE | 2017-06-26 19:10 | NUR ---
RECEIVED PT AWAKE, ALERT, ORIENTEDX4. PT SHOWS NO SIGNS OF DISTRESS. DAUGHTER AT BEDSIDE. CALL LIGHT WITHIN REACH. BED ALARM ON AND IN LOW POSITION, SIDE RAILSX2. WILL CONTINUE TO MONITOR.
[2017-06-26] MEDS: ATORVASTATIN 20 MG TABLET PO SCH (20:15)
[2017-06-26] MEDS: CLONAZEPAM 1 MG TABLET PO SCH (20:34)
[2017-06-26 20:40] VITALS: BP 116/62
[2017-06-26] MEDS: ACETAMINOPHEN 325 MG TABLET PO PRN (22:51)
[2017-06-27 05:26] VITALS: BP 113/53
--- NOTE | 2017-06-27 06:28 | NUR ---
PT SLEPT THROUGHOUT THE SHIFT. PT SHOWS NO SIGNS OF DISTRESS. PRESCRIBED MEDICATION GIVEN AND PT TOLERATED IT WELL. CALL LIGHT WITHIN REACH , BED ALARM ON, SIDE RAILS X2UP AND IN LOW POSITION.ALL NEEDS ARE MET. SAFETY AND COMFORT PROVIDED.GIVEN PAIN MEDICATION ON MY SHIFT. WILL ENDORSE TO DAYSHIFT NURSE.
[2017-06-27] MEDS: FAMOTIDINE 20 MG TABLET PO SCH (08:03)
[2017-06-27] MEDS: FLUCONAZOLE 100 MG TABLET PO SCH (08:03)
[2017-06-27] MEDS: DOCUSATE SODIUM 100 MG CAPSULE PO SCH (08:03)
[2017-06-27] MEDS: ASPIRIN EC 325 MG TABLET.DR PO SCH ×2 (08:03→20:22)
[2017-06-27] MEDS: MULTIVITAMINS,THERAPEUTIC TABLET PO SCH (08:03)
[2017-06-27] MEDS: FLUOXETINE HCL 20 MG CAPSULE PO SCH (08:03)
[2017-06-27 11:15] VITALS: BP 99/41
--- NOTE | 2017-06-27 14:32 | NUR ---
Daughter at bedside.
[2017-06-27 15:39] VITALS: BP 100/46
--- NOTE | 2017-06-27 17:57 | NUR ---
Patient alert, in no distress. L hip aravind intact, no redness/drainage/swelling/bleeding noted, dressing clean/dry/intact. Assisted patient with toileting needs, position changes and transfers. Patient able to use overhead trapeze and walker. Left hip maintained in neutral position/alignment. VS stable, afebrile. Safety measures in place. Will continue to monitor.
--- NOTE | 2017-06-27 19:30 | NUR ---
PT RECEIVED IN BED, AWAKE. A/OX2. FARSI SPEAKING, ABLE TO MAKE NEEDS KNOWN. V/S STABLE. IN NO ACUTE DISTRESS. PT C/O LEFT HIP PAIN 08/17. ICE PACK PROVIDED. ULTRAM FOR PAIN MANAGEMENT TO BE GIVEN PER MD ORDER. DRESSING INTACT AND PATENT, NO DRAINAGE OR SWELLING NOTED. NO IV IN PLACE. ON RA, TOLERATING WELL. AFEBRILE. SAFETY MEASURES IMPLEMENTED. BED ALARM SET. CALL LIGHT PLACED WITHIN REACH.
[2017-06-27 20:09] VITALS: BP 115/54
[2017-06-27] MEDS: ATORVASTATIN 20 MG TABLET PO SCH (20:22)
[2017-06-27] MEDS: CLONAZEPAM 1 MG TABLET PO SCH (20:22)
[2017-06-27] MEDS: TRAMADOL HCL 50 MG TABLET PO PRN (20:23)
[2017-06-27] MEDS: ACETAMINOPHEN 325 MG TABLET PO PRN (22:44)
[2017-06-27] MEDS ORDERED: TEMAZEPAM 15 MG CAPSULE PO PRN (22:45)
[2017-06-28 06:00] VITALS: BP 115/53
--- NOTE | 2017-06-28 06:05 | NUR ---
END OF SHIFT NOTES. PT SLEPT WELL THROUGHOUT SHIFT. INSOMNIA CEASED. LEFT HIP PAIN MANAGED. DRESSING REMAINS C/D/I, NO DRAINAGE NOTED. COMPLIANT WITH ALL CARE. ALL NEEDS ATTENDED. SAFETY MAINTAINED. CALL LIGHT REMAINS WITHIN REACH.
--- NOTE | 2017-06-28 07:20 | NUR ---
Received report from weight shifter nurse, patient in bed awake, no distress noted bed in low position, side rails up x2, bed alarm set.
[2017-06-28] MEDS: DOCUSATE SODIUM 100 MG CAPSULE PO SCH (08:49)
[2017-06-28] MEDS: FAMOTIDINE 20 MG TABLET PO SCH (08:49)
[2017-06-28] MEDS: ASPIRIN EC 325 MG TABLET.DR PO SCH (08:49)
[2017-06-28] MEDS: MULTIVITAMINS,THERAPEUTIC TABLET PO SCH (08:49)
[2017-06-28] MEDS: FLUOXETINE HCL 20 MG CAPSULE PO SCH (08:49)
[2017-06-28 11:24] VITALS: BP 106/57
--- NOTE | 2017-06-28 13:23 | NUR ---
Patient has been discharged to home. daughter escorted patient home with a private passenger coach driver from [email or web address]. [employer]lephone Operator service used to give discharge instructions to patient. Phone number to [facility] given as patient needs to have a follow up appt. with dr. mcfarland to remove aravind. Daughter was given all discharge instructions when she arrived to moss picker patient.
== END 2017-06-28 13:20 | disposition home health service (06) | DRG 481 ==
LOC: ER 00:37 → MED 03:50 → TELE 05:20 → MED 06-14 17:02 → TELE 06-14 18:56 → MED 06-15 12:36
PROVIDERS: ADMIT Nurse Practitioner Acute Care; ATTEND Internal Medicine
PROC: 0QS704Z Reposition Left Upper Femur with Internal Fixation Device, Open Approach (ICD-10-PCS; principal; 2017-06-14 16:13)
PROC: 30233N1 Transfusion of Nonautologous Red Blood Cells into Peripheral Vein, Percutaneous Approach (ICD-10-PCS; 2017-06-16)
DX: S72.142A Displaced intertrochanteric fracture of left femur, initial encounter for closed fracture (principal); D68.59 Other primary thrombophilia; D64.9 Anemia, unspecified; E83.42 Hypomagnesemia; B37.49 Other urogenital candidiasis; E78.5 Hyperlipidemia, unspecified; F32.9 Major depressive disorder, single episode, unspecified; W10.8XXA Fall (on) (from) other stairs and steps, initial encounter; Y92.89 Other specified places as the place of occurrence of the external cause
CPT/HCPCS: 36415; 70030-TC; 71045; 73502; 76001; 83735; 84100; 84443; 85025; 85610; 86850; 86900; 86901; 86920; 87086; 93005; 93307; 97110; 97116; 97530; A4649; A4663; J0690; J1450; J2250; J2270; J2405; J2710; J3010; J3475; J3490; J7030; J7040; J7120; P9016-BL; P9021